=== PATIENT | male | born 1950 | race Caucasian/White ===

== ENCOUNTER 2020-05-13 13:46 | Inpatient (IN) | payer OTHER ==
[~2020-05-13] VITALS: Ht 170.2 cm; Wt 80.5 kg
[2020-05-13] MEDS ORDERED: CEFTRIAXONE PMX 1GM/50ML 50 ML IVPB ONE (14:30)
[2020-05-13] MEDS ORDERED: SODIUM CHLORIDE FLUSH 10ML SYR IVF ONE (14:30)
[2020-05-13] MEDS ORDERED: AZITHROMYCIN 500 MG in SODIUM CHLORIDE 0.9% 250 ML IVPB ONE (14:30)
[2020-05-13] MEDS ORDERED: CEFTRIAXONE PMX 1GM/50ML 50 ML ONE (14:48)
[2020-05-13 15:00] LABS: BASOPHILS % (AUTO) 1 % (0-1); EOSINOPHILS % (AUTO) 0 % (1-7); LYMPHOCYTES % (AUTO) 5 % (22-44); MEAN CORPUSCULAR HEMOGLOBIN 30.7 pg (27.5-34.5); MEAN CORPUSCULAR HGB CONC 33.5 g/dL (33.2-36.2); MEAN PLATELET VOLUME 8.4 fL (7.4-10.4); MONOCYTES % (AUTO) 9 % (2-9); NEUTROPHILS % (AUTO) 85 % (42-75); PLATELET COUNT 470 x10^3/uL (130-400); RED BLOOD COUNT 4.75 x10^6/uL (4.38-5.82); RED CELL DISTRIBUTION WIDTH 12.9 % (9.4-14.8)
[2020-05-13 15:03] LABS: MD NO
[2020-05-13 15:10] LABS: ALANINE AMINOTRANSFERASE 39 U/L (12-78); ALBUMIN 2.7 g/dL (3.4-5.0); ANION GAP 6 mmol/L (5-15); CALCIUM 8.4 mg/dL (8.5-10.1); CHLORIDE 101 mmol/L (98-107); CREATININE 1.12 mg/dL (0.7-1.3)
--- NOTE | 2020-05-13 15:13 | NUR ---
pt resting in bed. appears in no acute distress. vss. pt on 3.5L of oxygen [place]. jailers at bedside
[2020-05-13 15:17] LABS: ALKALINE PHOSPHATASE 75 U/L (45-117); BILIRUBIN,TOTAL 1.2 mg/dL (0.2-1.0); C-REACTIVE PROTEIN, QUANT 9.99 mg/dL (0.02-0.49); TOTAL PROTEIN 7.8 g/dL (6.4-8.2)
[2020-05-13 15:47] LABS: D-DIMER (DIC) 13.44 ug/mlFEU (0.00-0.52); PROTIME 11.7 Seconds (9.6-11.5)
--- NOTE | 2020-05-13 16:22 | NUR ---
PT RESTING IN BED. DECLINES NEEDS AT THIS TIME
[2020-05-13] MEDS ORDERED: ONDANSETRON 2MG/ML, 2ML IVPush PRN (17:30)
[2020-05-13] MEDS ORDERED: hydrALAzine 20 MG/ML, 1ML IVPush PRN (17:30)
[2020-05-13] MEDS ORDERED: ACETAMINOPHEN 325 MG TABLET PO PRN (17:30)
[2020-05-13] MEDS: ENOXAPARIN 80 MG/0.8 ML SQ SCH (18:30)
[2020-05-13] MEDS ORDERED: ENOXAPARIN 80 MG/0.8 ML ONE (18:52)
[2020-05-13] MEDS ORDERED: PLEASE ENTER ALLERGIES MC SCH (19:30)
[2020-05-13] MEDS: FAMOTIDINE 20 MG TABLET PO SCH (21:45)
[2020-05-13] MEDS: methylPREDNISolone SOD SUCC 40 MG/ML IVPush SCH (21:45)
[2020-05-13] MEDS ORDERED: FAMOTIDINE 20 MG/2 ML ONE (23:03)
[2020-05-13] MEDS ORDERED: methylPREDNISolone SOD SUCC 40 MG/ML ONE (23:03)
[2020-05-14 00:01] VITALS: BP 117/69
[2020-05-14 01:27] VITALS: BP 117/69
[2020-05-14] MEDS ORDERED: NAPR-850 PO (02:14)
[2020-05-14 05:41] LABS: BASOPHILS % (AUTO) 0 % (0-1); EOSINOPHILS % (AUTO) 0 % (1-7); LYMPHOCYTES % (AUTO) 3 % (22-44); MEAN CORPUSCULAR HEMOGLOBIN 31.3 pg (27.5-34.5); MEAN CORPUSCULAR HGB CONC 34.6 g/dL (33.2-36.2); MEAN PLATELET VOLUME 8.1 fL (7.4-10.4); MONOCYTES % (AUTO) 3 % (2-9); NEUTROPHILS % (AUTO) 94 % (42-75); PLATELET COUNT 383 x10^3/uL (130-400); RED BLOOD COUNT 3.99 x10^6/uL (4.38-5.82); RED CELL DISTRIBUTION WIDTH 12.7 % (9.4-14.8)
[2020-05-14 05:51] LABS: ANION GAP 4 mmol/L (5-15); CALCIUM 7.8 mg/dL (8.5-10.1); CHLORIDE 107 mmol/L (98-107)
[2020-05-14 05:52] LABS: CREATININE 0.91 mg/dL (0.7-1.3)
[2020-05-14 06:06] LABS: MD NO
[2020-05-14 07:47] VITALS: BP 102/72
[2020-05-14] MEDS ORDERED: REMDESIVIR 200 MG in SODIUM CHLORIDE 0.9% 250 ML IVPB ONE (09:00)
[2020-05-14] MEDS: FAMOTIDINE 20 MG TABLET PO SCH ×2 (10:33→22:18)
[2020-05-14] MEDS: CEFTRIAXONE PMX 1GM/50ML 50 ML IV SCH (10:33)
[2020-05-14] MEDS: methylPREDNISolone SOD SUCC 40 MG/ML IVPush SCH ×2 (10:33→22:18)
[2020-05-14] MEDS: ENOXAPARIN 80 MG/0.8 ML SQ SCH ×2 (10:34→22:18)
[2020-05-14 13:10] VITALS: BP 106/80
[2020-05-14] MEDS: AZITHROMYCIN 500 MG in SODIUM CHLORIDE 0.9% 250 ML IV SCH (15:17)
[2020-05-14 22:14] VITALS: BP 112/73
[2020-05-15 02:47] VITALS: BP 108/71
[2020-05-15 06:38] LABS: CHLORIDE 110 mmol/L (98-107)
[2020-05-15 06:49] LABS: ALANINE AMINOTRANSFERASE 29 U/L (12-78); ALKALINE PHOSPHATASE 57 U/L (45-117); ANION GAP 3 mmol/L (5-15); BILIRUBIN,TOTAL 0.4 mg/dL (0.2-1.0); CALCIUM 8.1 mg/dL (8.5-10.1); CREATININE 0.68 mg/dL (0.7-1.3)
[2020-05-15 08:37] VITALS: BP 92/59
[2020-05-15] MEDS: methylPREDNISolone SOD SUCC 40 MG/ML IVPush SCH ×2 (09:15→19:55)
[2020-05-15] MEDS: FAMOTIDINE 20 MG TABLET PO SCH ×2 (09:15→19:55)
[2020-05-15] MEDS: CEFTRIAXONE PMX 1GM/50ML 50 ML IV SCH (09:15)
[2020-05-15] MEDS: ENOXAPARIN 80 MG/0.8 ML SQ SCH ×2 (11:40→23:24)
[2020-05-15] MEDS: REMDESIVIR 100 MG in SODIUM CHLORIDE 0.9% 250 ML IVPB SCH (11:40)
[2020-05-15 14:50] VITALS: BP 104/64
[2020-05-15] MEDS: AZITHROMYCIN 500 MG in SODIUM CHLORIDE 0.9% 250 ML IV SCH (14:58)
[2020-05-15 19:10] VITALS: BP 112/75
[2020-05-16 04:51] LABS: ALBUMIN 2.2 g/dL (3.4-5.0); ANION GAP 3 mmol/L (5-15); CALCIUM 8.2 mg/dL (8.5-10.1); CHLORIDE 108 mmol/L (98-107)
[2020-05-16 04:56] LABS: ALANINE AMINOTRANSFERASE 28 U/L (12-78); ALKALINE PHOSPHATASE 60 U/L (45-117); BILIRUBIN,TOTAL 0.4 mg/dL (0.2-1.0); CREATININE 0.81 mg/dL (0.7-1.3); TOTAL PROTEIN 6.3 g/dL (6.4-8.2)
[2020-05-16 07:08] VITALS: BP 121/81
[2020-05-16] MEDS: CEFTRIAXONE PMX 1GM/50ML 50 ML IV SCH (11:35)
[2020-05-16] MEDS: FAMOTIDINE 20 MG TABLET PO SCH ×2 (11:35→20:47)
[2020-05-16] MEDS: methylPREDNISolone SOD SUCC 40 MG/ML IVPush SCH ×2 (11:35→20:47)
[2020-05-16] MEDS: REMDESIVIR 100 MG in SODIUM CHLORIDE 0.9% 250 ML IVPB SCH (12:52)
[2020-05-16 12:55] VITALS: BP 104/69
[2020-05-16] MEDS: AZITHROMYCIN 500 MG in SODIUM CHLORIDE 0.9% 250 ML IV SCH (16:11)
[2020-05-16] MEDS: ENOXAPARIN 80 MG/0.8 ML SQ SCH (16:11)
[2020-05-17 04:01] LABS: INTERNATIONAL NORMALIZED RATIO 1.09 (0.93-1.1); PROTHROMBIN TIME 11.5 Seconds (9.6-11.5)
[2020-05-17 04:06] LABS: ALANINE AMINOTRANSFERASE 40 U/L (12-78); ALBUMIN 2.3 g/dL (3.4-5.0); ANION GAP 2 mmol/L (5-15); CALCIUM 8.1 mg/dL (8.5-10.1); CHLORIDE 108 mmol/L (98-107); CREATININE 0.84 mg/dL (0.7-1.3)
[2020-05-17 04:08] LABS: ALKALINE PHOSPHATASE 61 U/L (45-117); BILIRUBIN,TOTAL 0.8 mg/dL (0.2-1.0); TOTAL PROTEIN 6.5 g/dL (6.4-8.2)
[2020-05-17] MEDS: ENOXAPARIN 80 MG/0.8 ML SQ SCH ×2 (04:25→15:00)
[2020-05-17 07:39] VITALS: BP 129/80
[2020-05-17] MEDS: methylPREDNISolone SOD SUCC 40 MG/ML IVPush SCH ×2 (10:47→19:58)
[2020-05-17] MEDS: FAMOTIDINE 20 MG TABLET PO SCH ×2 (10:48→19:58)
[2020-05-17] MEDS: CEFTRIAXONE PMX 1GM/50ML 50 ML IV SCH (10:51)
[2020-05-17] MEDS: REMDESIVIR 100 MG in SODIUM CHLORIDE 0.9% 250 ML IVPB SCH (12:27)
[2020-05-17 13:37] VITALS: BP 138/85
[2020-05-17] MEDS: AZITHROMYCIN 500 MG in SODIUM CHLORIDE 0.9% 250 ML IV SCH (15:05)
[2020-05-17 19:03] VITALS: BP 114/59
[2020-05-18 00:19] VITALS: BP 123/76
[2020-05-18] MEDS: ENOXAPARIN 80 MG/0.8 ML SQ SCH ×2 (03:05→14:51)
[2020-05-18 04:08] LABS: ALANINE AMINOTRANSFERASE 68 U/L (12-78); ALBUMIN 2.4 g/dL (3.4-5.0); ANION GAP 2 mmol/L (5-15); CALCIUM 8.4 mg/dL (8.5-10.1); CHLORIDE 109 mmol/L (98-107); CREATININE 0.82 mg/dL (0.7-1.3)
[2020-05-18 04:10] LABS: ALKALINE PHOSPHATASE 59 U/L (45-117); BILIRUBIN,TOTAL 0.4 mg/dL (0.2-1.0); TOTAL PROTEIN 6.8 g/dL (6.4-8.2)
[2020-05-18 07:54] VITALS: BP 124/86
[2020-05-18] MEDS: FAMOTIDINE 20 MG TABLET PO SCH (09:02)
[2020-05-18] MEDS: methylPREDNISolone SOD SUCC 40 MG/ML IVPush SCH (09:02)
[2020-05-18] MEDS: CEFTRIAXONE PMX 1GM/50ML 50 ML IV SCH (09:17)
[2020-05-18] MEDS: REMDESIVIR 100 MG in SODIUM CHLORIDE 0.9% 250 ML IVPB SCH (12:03)
[2020-05-18] MEDS ORDERED: ASCO1500 PO (12:10)
[2020-05-18] MEDS ORDERED: CHOL10003 PO (12:10)
[2020-05-18] MEDS ORDERED: CEFD300C37 PO (12:10)
[2020-05-18] MEDS ORDERED: APIX5TAB4 PO (12:10)
[2020-05-18] MEDS ORDERED: AZIT500T10 PO (12:10)
[2020-05-18] MEDS ORDERED: ZINC220C7 PO (12:10)
[2020-05-18] MEDS: AZITHROMYCIN 500 MG in SODIUM CHLORIDE 0.9% 250 ML IV SCH (14:50)
[2020-05-18 14:52] VITALS: BP 129/86
[2020-05-18 18:29] VITALS: BP 114/72
== END 2020-05-18 21:24 | disposition home or self-care (01) | DRG 871 ==
LOC: ED 15:46 → SUATTDRO 16:46 → EDIP 17:20 → 3N 23:55
PROVIDERS: ADMIT Hospitalist; ATTEND Hospitalist
PROC: XW033E5 Introduction of Remdesivir Anti-infective into Peripheral Vein, Percutaneous Approach, New Technology Group 5 (ICD-10-PCS; principal; 2020-05-15)
DX: A41.89 Other specified sepsis (principal); E43 Unspecified severe protein-calorie malnutrition; J12.89 Other viral pneumonia; J96.01 Acute respiratory failure with hypoxia; U07.1 COVID-19; I26.99 Other pulmonary embolism without acute cor pulmonale; E87.1 Hypo-osmolality and hyponatremia; E87.6 Hypokalemia; Z68.27 Body mass index [BMI] 27.0-27.9, adult; D72.810 Lymphocytopenia
CPT/HCPCS: 36415; 71045; 71275; 80048; 80053; 82728; 83605; 83615; 84145; 85025; 85049; 85379; 85384; 85610; 85730; 86140; 87040; 93005; 96365; 96375; 99285; G0378; J0456; J0696; J1650; J2920; J7050